=== PATIENT | female | born 1950 | race Caucasian/White ===

== ENCOUNTER 2016-08-24 12:37 | Observation (INO) ==
[2016-08-24] MEDS ORDERED: Azithromycin 500 MG in D5% in Water 250 ML IVPB ONE (12:47)
[2016-08-24] MEDS ORDERED: CefTRIAXone 1,000 MG in D5% in Water (Mini-Bag+) 100 ML IVPB ONE (12:47)
[2016-08-24] MEDS ORDERED: Ipratropium/Albuterol Neb 3 ML IH ONE (12:47)
[2016-08-24] MEDS ORDERED: 0.9 % Sodium Chloride 1,000 ML IVC ONE (12:47)
--- NOTE | 2016-08-24 12:52 | Emergency Department Note ---
Disposition Clinical Impression: Community acquired pneumonia Disposition: Admitted As Inpatient Condition: Good Referrals: Maral Forde MD [Primary Care Provider] - Forms: ED Satisfaction Letter Time of Disposition: 13:38 (bernardo obsv) Fever HPI - General Chief Complaint: ED Fever Stated Complaint: fever Time Seen by Provider: 08/24/16 12:40 Source: patient Mode of arrival: ambulatory Limitations: no limitations Nursing Notes Reviewed: Yes Vital Signs Reviewed: Yes - History of Present Illness HPI Narrative: Patient sent in from the urgent care and diagnosed with right lower lobe pneumonia fever cough congestion symptoms going on for about a week progressively worsening last light she said I thought I was going to his eye trouble breathing states that she has had cough congestion unable to bring up any phlegm denies diarrhea melena hematochezia or hematemesis Pt Subjective Complaint: fever, weakness Onset (ago): week(s) (1) Context: sick contacts Associated symptoms: Reports: chills, rigors, nasal congestion, cough, chest pain, dyspnea. Denies: myalgias, headache, rhinorrhea, sore throat, stiff neck , abdominal pain, nausea, vomiting, diarrhea, dysuria, altered mental status, night sweats, weight loss Improves with: nothing Worsens with: exertion Treatments prior to arrival fever: other healthcare encounter for this problem - Related Data Home Medications Medication Instructions Recorded Confirmed Albuterol Neb [Proventil Neb] 2.5 mg IH Q4H PRN 01/23/16 08/24/16 Albuterol Sulfate [Proair Hfa] 2 puff IH Q4H PRN 01/23/16 08/24/16 Fluticasone/Salmeterol [Advair 1 puff IH BID 01/23/16 08/24/16 250-50 Diskus] Loratadine [Claritin] 10 mg PO DAILY 01/23/16 08/24/16 Tiotropium [Spiriva] 18 mcg IH 0700 01/23/16 08/24/16 Allergies Allergy/AdvReac Type Severity Reaction Status Date / Time NSAIDS (Non-Steroidal AdvReac unknown Verified 08/24/16 11:36 Anti-Inflamma All systems ED: reviewed and negative except as stated. Constitutional: Reports: fever, chills, weakness Eyes: Denies: vision change ENT ED: Reports: congestion. Denies: ear pain, throat pain Cardiovascular: Reports: chest pain. Denies: palpitations Respiratory: Reports: cough, dyspnea, wheezes, sputum production Gastrointestinal: Denies: abdominal pain, nausea, vomiting Genitourinary: Denies: urgency, dysuria Musculoskeletal: Denies: back pain Integumentary: Denies: rash, abrasion Neurological: Denies: headache, weakness Psychiatric: Denies: anxiety Endocrine: Denies: fatigue Hematological/Lymphatic: Denies: easy bleeding Allergic/Immunologic: Denies: facial swelling Fever PMH - Past Medical History Medical history: Reports: asthma, COPD Surgical history: Reports: other (tubal ligation, full dental extraction) Psychiatric history: Reports: anxiety [employer]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 - Social History Smoking Status: Current every day smoker Alcohol use: Reports: none Drug use: Reports: none Physical Exam - General Limitations: no limitations General appearance: alert, anxious, in distress, cachectic - Head Head exam: atraumatic, normocephalic, normal inspection - Eye Eye exam: Present: normal appearance, PERRL, EOMI - ENT ENT exam: normal exam, normal oropharynx, mucous membranes moist, TM's normal bilaterally, normal external ear exam, other (PND) - Neck Neck exam: Present: normal inspection, full ROM, trachea midline - Chest Chest inspection: Present: normal inspection, symmetric chest wall rise - Respiratory Respiratory exam: Present: wheezes, accessory muscle use, prolonged expiratory phase - Cardiovascular Cardiovascular exam: Present: regular rate, normal rhythm, normal heart sounds - Abdominal Exam Abdominal exam: Present: soft, Non-Tender, normal bowel sounds - Extremities Exam Extremities exam: Present: normal inspection, full ROM, normal capillary refill. Absent: tenderness, joint swelling - Back Exam Back exam: Present: normal inspection, full ROM, CVA tenderness (R). Absent: tenderness, CVA tenderness (L) - Neurological Exam Neurological exam: Present: alert, oriented X3, CN II-XII intact - Psychiatric Psychiatric exam: Present: normal affect, normal mood - Skin Skin exam: Present: warm, dry, intact, normal color Course Course Narrative: Since seen and examined I reviewed the chest x-ray from a local urgent care which actually appears to be a right upper lobe pneumonia consistent with the radiologist read the CT scan of the chest to be done here in the emergency room start her on IV antibiotics she is agreeable with staying she will be admitted for antibiotic antibiotics with failed outpatient therapy - Reevaluation(s) Reevaluation #1: Spoke Dr. Gray about admission to his services patient will be transferred to [facility] antibiotics started here in the ER patient is agreeable patient resting comfortably much calmer than she was when she first arrived Vital Signs Temperature 98 F 08/24/16 12:40 Pulse Rate 119 08/24/16 12:40 Respiratory Rate 18 08/24/16 12:40 Blood Pressure 114/75 08/24/16 12:40 O2 Sat by Pulse Oximetry 95 08/24/16 12:40 Temperature 98 F 08/24/16 12:40 Pulse Rate 93 08/24/16 13:37 Respiratory Rate 18 08/24/16 13:37 Blood Pressure 100/67 08/24/16 13:37 O2 Sat by Pulse Oximetry 100 08/24/16 13:37 Oxygen Delivery Oxygen Delivery Room Air Fever - Differential Diagnosis Likely: community acquired pneumonia, viral infection - Medical Records Medical records reviewed: Yes I reviewed the patient's medical records. - Lab Data Lab results reviewed: Yes I reviewed the patient's lab results. Lab Results 08/24/16 Range/Units 13:13 PT 10.3 (9.4-12.1) Seconds INR 1.0 APTT 32.1 (26.0-36.0) Seconds - Radiology Data Radiology results reviewed: Yes I reviewed the patient's radiology results. - EKG Data EKG attestation: Yes I reviewed and interpreted this EKG. Critical Care Time Critical Care Time: No
[2016-08-24 13:28] LABS: Prothrombin Time 10.3 Seconds (9.4-12.1)
[2016-08-24 13:30] LABS: Activated Partial Thrombo Time 32.1 Seconds (26.0-36.0)
[2016-08-24 13:36] LABS: BUN/Creatinine Ratio 24 (6-26); Basophils % 0.4 %; Blood Urea Nitrogen 20 mg/dL (7-20); Carbon Dioxide 15 mEq/L (19-29); Chloride 94 mEq/L (98-109); Eosinophils % 0.1 %; Glucose 127 mg/dL (70-99); Hematocrit 43.4 % (35.3-44.9); Hemoglobin 15.7 g/dL (11.5-15.4); Immature Granulocytes % 1.1 % (0-4); Lymphocytes # 0.7 K/mcL (0.6-4.6); Lymphocytes % 6.3 %; Mean Corpuscular HGB Conc 36.2 g/dL (31.6-35.5); Mean Corpuscular Volume 88.4 fL (83.0-100.0); Monocytes # 0.5 K/mcL (0.0-1.3); Monocytes % 4.1 %; Neutrophils # 9.9 K/mcL (1.6-8.9); Osmolality,Calculated 262 (280-300); Potassium 3.3 mEq/L (3.5-4.5); Red Blood Count 4.91 M/mcL (3.82-4.97); Red Cell Distribution Width 12.2 % (11.5-14.5); Sodium 124 mEq/L (136-145); eGFR For African Americans > 60 (> 60); eGFR For Non-African Americans > 60 (> 60)
[2016-08-24 13:52] LABS: Basophils # 0.1 K/mcL (0.0-0.2); Platelet Count 99 K/mcL (140-400)
[2016-08-24] MEDS ORDERED: 0.9 % Sodium Chloride 1,000 ML IVC SCH (14:01)
[2016-08-24] MEDS ORDERED: Naloxone 0.4 MG/ML INJ IVP PRN (14:01)
[2016-08-24] MEDS ORDERED: Ondansetron ODT 4 MG TAB.RAPDIS SL PRN (14:01)
[2016-08-24] MEDS: Nicotine 21 MG PATCH.TD24 TD SCH (18:51)
[2016-08-24] MEDS: Acetaminophen 325 MG TABLET PO PRN (20:22)
[2016-08-24] MEDS: HYDROcodone BIT/Homatropine LQ 5 MG/5 ML UDC PO PRN (20:22)
[2016-08-24] MEDS: 0.9 % Sodium Chloride w KCl 20 MEQ/1,000 ML MLS IVC SCH (20:22)
[2016-08-24] MEDS: Budesonide/Formoterol 80/4.5 MDI IH SCH (21:06)
[2016-08-25] MEDS: 0.9 % Sodium Chloride w KCl 20 MEQ/1,000 ML MLS IVC SCH ×3 (05:57→18:09)
[2016-08-25] MEDS ORDERED: *HR* Enoxaparin 40 MG/0.4 ML SYRINGE SQ SCH (06:00)
[2016-08-25] MEDS: Acetaminophen 325 MG TABLET PO PRN ×2 (06:04→17:26)
[2016-08-25] MEDS: HYDROcodone BIT/Homatropine LQ 5 MG/5 ML UDC PO PRN ×2 (06:05→17:27)
[2016-08-25 06:31] LABS: Basophils % 0.3 %; Eosinophils % 0.6 %; Hematocrit 37.1 % (35.3-44.9); Hemoglobin 13.3 g/dL (11.5-15.4); Immature Granulocytes % 0.4 % (0-4); Lymphocytes % 14.1 %; Mean Corpuscular HGB Conc 35.8 g/dL (31.6-35.5); Mean Corpuscular Hemoglobin 32.4 pg (28.0-33.3); Mean Corpuscular Volume 90.3 fL (83.0-100.0); Mean Platelet Volume 10.1 fL (9.4-12.4); Monocytes # 0.4 K/mcL (0.0-1.3); Monocytes % 5.9 %; Neutrophils # 5.6 K/mcL (1.6-8.9); Platelet Count 106 K/mcL (140-400); Red Blood Count 4.11 M/mcL (3.82-4.97); Red Cell Distribution Width 12.5 % (11.5-14.5); Segmented Neutrophils % 78.7 %
[2016-08-25 06:39] LABS: Alanine Aminotransferase 31 Units/L (0-55); Albumin 2.4 g/dL (3.5-5.0); Albumin/Globulin Ratio 0.7 (1.1-2.2); Alkaline Phosphatase 62 Units/L (38-126); Aspartate Amino Transferase 34 Units/L (5-34); BUN/Creatinine Ratio 22 (6-26); Bilirubin,Total 0.6 mg/dL (0.2-1.2); Blood Urea Nitrogen 13 mg/dL (7-20); Calcium 8.2 mg/dL (8.6-10.8); Carbon Dioxide 21 mEq/L (19-29); Chloride 102 mEq/L (98-109); Globulin 3.4 g/dL (2.4-3.5); Glucose 94 mg/dL (70-99); Osmolality,Calculated 276 (280-300); Potassium 3.6 mEq/L (3.5-4.5); Sodium 133 mEq/L (136-145); Total Protein 5.8 g/dL (6.0-8.3); eGFR For African Americans > 60 (> 60); eGFR For Non-African Americans > 60 (> 60)
[2016-08-25] MEDS: Budesonide/Formoterol 80/4.5 MDI IH SCH ×2 (08:35→20:38)
[2016-08-25] MEDS: Tiotropium 18 MCG inhalation IH SCH (08:35)
[2016-08-25] MEDS ORDERED: Loratadine 10 MG TABLET PO SCH (09:00)
[2016-08-25] MEDS: Nicotine 21 MG PATCH.TD24 TD SCH (09:00)
--- NOTE | 2016-08-25 12:03 | Internal Med History&Physical ---
Date of Encounter: 08/25/16 Time of Encounter: 11:30 Assessment and Plan (1) Community acquired pneumonia Current visit: Yes Status: Acute She has been started on Rocephin and Zithromax. Lactobacillus will be added. (2) COPD (chronic obstructive pulmonary disease) Current visit: Yes Status: Chronic Continue antibiotics and Spiriva. Will order albuterol nebulizer as needed Qualifiers: COPD type: emphysema Emphysema type: unspecified Qualified Code(s): J43.9 - Emphysema, unspecified Internal Medicine - H&P: HPI Chief complaint: dyspnea Admitted From: Home Plans for Post Hospital Care: Home History of present illness: Ms. Avalos is a 66 year old female who came to emergency complaining of increased dyspnea over the preceding week. She used OTC remedies without improvement. She went to urgent care and was referred to the emergency room after diagnosis of pneumonia was made. A chest CT confirmed a right upper lobe infiltrate. She was admitted to [facility] for ongoing care needs. Her respiratory history is significant for having smoked since age 17 up to 4 packs per day. She has been diagnosed with COPD/emphysema but does not use home oxygen. Past Med Surg Social Fam HX - Past Medical History Medical history: arthritis, asthma, COPD, other Psychiatric history: anxiety - Past Surgical History Surgical History: other - Social History Smoking Status: Current every day smoker Packs per day: 1 Smokeless Tobacco Status: No Alcohol use: none Drug use: none - Family History Mother Adopted: [place]: Denia Reyna Age: 93 Family Member Ethnicity: Non- Living Status: Still Living Hx Family Cardiac Disorders: Yes (Unknown) Hx Family Cancer: Yes (Uterine) Hx Family Endocrine Disorder: Yes Father Adopted: [place]: rJ Reyna Age: 84 Family Member Ethnicity: Non- Living Status: Age at : 84 Cause of : Infection due to bed ulcer Hx Family Cardiac Disorders: Yes (Angina) Hx Family GI Disorders: Yes Hx Family Endocrine Disorder: Yes Hx Family Neuromuscular Disorders: Yes (Multiple Sclerosis) Hx Family Neurologic Disorders: Yes Internal Medicine - H&P: Meds Albuterol Neb [Proventil Neb] 2.5 mg IH Q4H PRN 01/23/16 [History] Albuterol Sulfate [Proair Hfa] 2 puff IH Q4H PRN 01/23/16 [History] Fluticasone/Salmeterol [Advair 250-50 Diskus] 1 puff IH BID 01/23/16 [History] Loratadine [Claritin] 10 mg PO DAILY 01/23/16 [History] Tiotropium [Spiriva] 18 mcg IH 0700 01/23/16 [History] Allergies NSAIDS (Non-Steroidal Anti-Inflamma Adverse Reaction (Verified 08/24/16 11:36) unknown All Systems PM: A 10-system review of systems was performed and is negative for pertinent findings except as documented above in the HPI. Review of systems: Gen.: Her weight has been stable the past 6 months Cardiovascular: She has no history of hypertension AL heart failure angina DVT or pulmonary embolus Respiratory: As per history of present illness GI: She has had diarrhea for approximately 2 weeks. She has been diagnosed with gallstones but these are asymptomatic. She denies disorders of her exocrine pancreas. She had perforated duodenal ulcer repair January 2016. She has history of hepatitis C. : She denies hematuria or dysuria or kidney stones Neurologic: She denies large distribution strokes or seizures. Endocrine: She had treatment with radioactive iodine for a thyroid condition in 1983 but does not know details. She denies diabetes or hyperlipidemia Hematology/oncology: She denies blood disorders cancers or anemia Psychiatric: She has anxiety but denies depression or other mental health issues Musk skeletal: She has DJD but no known gout or other bone joint or muscle disorders. - Constitutional Vitals: Temp Pulse Resp BP Pulse Ox 98.2 F 76 16 94/68 92 L 08/25/16 10:55 08/25/16 10:55 08/25/16 10:55 08/25/16 10:55 08/25/16 10:55 Exam: Gen.: She is a well-developed lean female who appears in no severe distress at present time HEENT: Head is atraumatic and normocephalic. Eyes: EOMI. There is no scleral icterus. Mouth: Mucosa is moist. Neck: Supple and nontender. There is no thyromegaly or adenopathy noted. Heart: Regular without murmurs gallops or ectopics. Lungs: No wheezes or crackles are heard. Abdomen: Soft and nontender. Exam is limited because she is in the seated position. Extremities: There is no cyanosis edema or clubbing noted. She has significant DJD changes her hands. Dorsalis pedis and posterior tibial pulses are trace to 1+ palpable bilaterally. Her feet are warm to touch. Neurologic: Mental status: She is talkative and a good historian. Cranial nerves: Smile is symmetric. Forehead wrinkles bilaterally. Tongue protrudes midline. EOMI. Motor: There is no pronator drift. Cerebellar: Finger to nose is intact bilaterally. Skin: Warm and dry Internal Med - H&P Results - Labs CBC & Chem 7: 08/25/16 05:23 08/25/16 05:23 Labs: Short CBC 08/25/16 Range/Units 05:23 WBC 7.1 (4.3-11.1) K/mcL Hgb 13.3 D (11.5-15.4) g/dL Hct 37.1 (35.3-44.9) % Plt Count 106 L (140-400) K/mcL Neutrophils # 5.6 (1.6-8.9) K/mcL BMP 08/25/16 05:23 Sodium 133 L D Potassium 3.6 Chloride 102 Carbon Dioxide 21 BUN 13 Creatinine 0.60 Glucose 94 Calcium 8.2 L Liver Function 08/25/16 Range/Units 05:23 Total Bilirubin 0.6 (0.2-1.2) mg/dL AST 34 (5-34) Units/L ALT 31 (0-55) Units/L Alkaline Phosphatase 62 (38-126) Units/L Albumin 2.4 L (3.5-5.0) g/dL
[2016-08-25] MEDS: *HR* Enoxaparin 40 MG/0.4 ML SYRINGE SQ SCH (13:15)
[2016-08-25] MEDS: Lactobacillus 1 EACH CAP.SPRINK PO SCH ×2 (13:18→21:45)
[2016-08-25] MEDS ORDERED: CefTRIAXone 1,000 MG in D5% in Water (Mini-Bag+) 100 ML IVPB SCH (14:00)
[2016-08-25] MEDS: Azithromycin 500 MG in D5% in Water 250 ML IVPB SCH (14:33)
[2016-08-25] MEDS: Albuterol 2.5 MG/3 ML NEBULIZER IH PRN ×2 (18:00→20:37)
[2016-08-26 06:02] LABS: Basophils % 0.3 %; Eosinophils % 0.3 %; Immature Granulocytes % 0.7 % (0-4); Lymphocytes # 1.3 K/mcL (0.6-4.6); Lymphocytes % 20.5 %; Mean Corpuscular HGB Conc 35.1 g/dL (31.6-35.5); Mean Corpuscular Hemoglobin 32.4 pg (28.0-33.3); Mean Corpuscular Volume 92.3 fL (83.0-100.0); Mean Platelet Volume 10.3 fL (9.4-12.4); Monocytes # 0.5 K/mcL (0.0-1.3); Neutrophils # 4.3 K/mcL (1.6-8.9); Platelet Count 140 K/mcL (140-400); Red Blood Count 4.01 M/mcL (3.82-4.97); Red Cell Distribution Width 12.7 % (11.5-14.5); Segmented Neutrophils % 70.2 %
[2016-08-26 06:20] LABS: BUN/Creatinine Ratio 14 (6-26); Blood Urea Nitrogen 8 mg/dL (7-20); Calcium 8.4 mg/dL (8.6-10.8); Carbon Dioxide 21 mEq/L (19-29); Chloride 108 mEq/L (98-109); Glucose 97 mg/dL (70-99); Magnesium 1.9 mg/dL (1.6-2.6); Osmolality,Calculated 286 (280-300); Potassium 3.8 mEq/L (3.5-4.5); Sodium 139 mEq/L (136-145); eGFR For African Americans > 60 (> 60); eGFR For Non-African Americans > 60 (> 60)
[2016-08-26] MEDS: HYDROcodone BIT/Homatropine LQ 5 MG/5 ML UDC PO PRN ×2 (06:33→14:58)
[2016-08-26] MEDS: Acetaminophen 325 MG TABLET PO PRN ×2 (06:33→14:57)
[2016-08-26] MEDS: *HR* Enoxaparin 40 MG/0.4 ML SYRINGE SQ SCH (06:34)
[2016-08-26] MEDS: 0.9 % Sodium Chloride w KCl 20 MEQ/1,000 ML MLS IVC SCH (06:40)
[2016-08-26 06:42] LABS: Thyroid Stimulating Hormone 1.249 mcIU/mL (0.350-4.840)
[2016-08-26] MEDS: Tiotropium 18 MCG inhalation IH SCH (07:51)
[2016-08-26] MEDS: Budesonide/Formoterol 80/4.5 MDI IH SCH ×3 (07:52→21:05)
[2016-08-26] MEDS: Albuterol 2.5 MG/3 ML NEBULIZER IH PRN ×3 (08:10→21:05)
[2016-08-26] MEDS: Nicotine 21 MG PATCH.TD24 TD SCH (10:45)
[2016-08-26] MEDS: Lactobacillus 1 EACH CAP.SPRINK PO SCH ×2 (10:45→20:07)
[2016-08-26] MEDS ORDERED: CefTRIAXone 1,000 MG in D5% in Water (Mini-Bag+) 100 ML IVPB SCH (12:00)
[2016-08-26] MEDS: Azithromycin 500 MG in D5% in Water 250 ML IVPB SCH (14:45)
--- NOTE | 2016-08-26 14:49 | Internal Med Progress Note ---
Date of Encounter: 08/26/16 Time of Encounter: 14:40 - Assessment and plan (1) Community acquired pneumonia Current Visit: Yes Status: Acute Assessment and plan: August 26. Continue Rocephin and Zithromax and lactobacillus (2) COPD (chronic obstructive pulmonary disease) Current Visit: Yes Status: Chronic Assessment and plan: August 26. Continue present regimen Qualifiers: COPD type: emphysema Emphysema type: unspecified Qualified Code(s): J43.9 - Emphysema, unspecified - Subjective Interval history: August 26. She has no new complaints and feels better - Constitutional Vitals: Temp Pulse Resp BP Pulse Ox 97.6 F 90 22 110/68 95 08/26/16 14:00 08/26/16 14:00 08/26/16 14:00 08/26/16 14:00 08/26/16 14:00 Exam: She is resting comfortably on the side of the bed. Her affect is bright and cheerful. I reviewed her medications and lab results. Internal Medicine: Result - Labs CBC & Chem 7: 08/26/16 05:18 08/26/16 05:18 Labs: Short CBC 08/26/16 Range/Units 05:18 WBC 6.1 (4.3-11.1) K/mcL Hgb 13.0 (11.5-15.4) g/dL Hct 37.0 (35.3-44.9) % Plt Count 140 (140-400) K/mcL Neutrophils # 4.3 (1.6-8.9) K/mcL BMP 08/26/16 05:18 Sodium 139 Potassium 3.8 Chloride 108 Carbon Dioxide 21 BUN 8 Creatinine 0.59 Glucose 97 Calcium 8.4 L - ABG Interpretation ABG results: PT/INR, D-dimer PT 10.3 Seconds (9.4-12.1) 08/24/16 13:13 Consult Discharge Plan - Plan Referrals: Maral Forde MD [Primary Care Provider] - 1 week
[2016-08-27] MEDS: *HR* Enoxaparin 40 MG/0.4 ML SYRINGE SQ SCH (04:50)
[2016-08-27] MEDS: Tiotropium 18 MCG inhalation IH SCH (08:35)
[2016-08-27] MEDS: Budesonide/Formoterol 80/4.5 MDI IH SCH (08:37)
[2016-08-27 09:37] VITALS: BP 121/71
--- NOTE | 2016-08-27 10:08 | Discharge Summary ---
Date of Encounter: 08/27/16 Time of Encounter: 09:55 - Discharge Diagnosis (1) Community acquired pneumonia Priority: Primary Status: Acute (2) COPD (chronic obstructive pulmonary disease) Priority: Secondary Status: Chronic Qualifiers: COPD type: emphysema Emphysema type: unspecified Qualified Code(s): J43.9 - Emphysema, unspecified - Discharge Medications Prescriptions: Cefuroxime PO [Ceftin] 500 mg PO Q12HR #6 tablet Azithromycin [Zithromax] 250 mg PO DAILY #3 tablet Lactobacillus [Culturelle] 1 each PO BID #6 cap.sprink Home Medications: Albuterol Neb [Proventil Neb] 2.5 mg IH Q4H PRN 01/23/16 [History] Albuterol Sulfate [Proair Hfa] 2 puff IH Q4H PRN 01/23/16 [History] Fluticasone/Salmeterol [Advair 250-50 Diskus] 1 puff IH BID 01/23/16 [History] Tiotropium [Spiriva] 18 mcg IH 0700 01/23/16 [History] Azithromycin [Zithromax] 250 mg PO DAILY #3 tablet 08/27/16 [Rx] Cefuroxime PO [Ceftin] 500 mg PO Q12HR #6 tablet 08/27/16 [Rx] Lactobacillus [Culturelle] 1 each PO BID #6 cap.sprink 08/27/16 [Rx] Loratadine [Claritin] 10 mg PO DAILY PRN #0 08/27/16 [Rx] Allergies/Adverse Reactions: Allergies NSAIDS (Non-Steroidal Anti-Inflamma Adverse Reaction (Verified 08/24/16 11:36) unknown Date of admission: 08/24/16 13:55 Primary care physician: Maral Forde - Patient Status Disposition: Home, Self-Care Condition: Good Overall status at discharge: patient is progressing back to baseline - Discharge Instructions Follow Up With: Maral Forde MD [Primary Care Provider] - 1 week - Diet and Activity Activity: resume usual activities as tolerated Diet: advance to your usual diet Hospital course: Ms. Avalos is a 66 year old female who came to emergency complaining of increased dyspnea over the preceding week. She used OTC remedies without improvement. She went to urgent care and was referred to the emergency room after diagnosis of pneumonia was made. A chest CT confirmed a right upper lobe infiltrate. She was admitted to [facility] for ongoing care needs. Initial orders were written by the emergency room physician. I saw her on August 25 and performed the history and physical. She was started on Rocephin and Zithromax. Lactobacillus was given. She had clinical improvement with normalization of WBC to 6.1 on August 26 with resolution of the left shift. She will continue with antibiotic and probiotic for 3 additional days after discharge. TSH returned normal at 1.249. Diarrhea resolved during hospitalization. Stool returned negative for C. difficile. On August 27 she was stable for discharge home. Room air oximetry showed adequate oxygenation on a 6 minute walk. She will follow with Dr. Forde within 1 week. I encouraged her to become a nonsmoker. - Time Spent with Patient Total time spent providing and/or coordinating discharge services: - Constitutional Vitals: Temp Pulse Resp BP Pulse Ox 98.2 F 85 16 121/71 93 L 08/27/16 08:00 08/27/16 08:00 08/27/16 08:37 08/27/16 08:00 08/27/16 08:37
== END 2016-08-27 12:03 | disposition home or self-care (01) ==
LOC: INPPIK 12:37 → EMEROOPIK 12:37 → INPPIK 14:28
PROVIDERS: ADMIT Internal Medicine; ATTEND Internal Medicine